=== PATIENT | female | born 1960 | race Caucasian/White ===

== ENCOUNTER 2024-12-08 09:54 | Emergency (ER) | payer BC, OTHER | END 2024-12-08 11:00 | disposition home or self-care (01) | LOC: MADERS 09:54 | DX: M54.41 Lumbago with sciatica, right side (principal); I10 Essential (primary) hypertension; E66.9 Obesity, unspecified; Z87.891 Personal history of nicotine dependence; Z79.899 Other long term (current) drug therapy | CPT/HCPCS: 96372; 99282; J2270 ==